=== PATIENT | male | born 1990 | race Caucasian/White ===

== ENCOUNTER 2021-03-31 04:10 | Emergency (ER) | payer BC ==
[2021-03-31] MEDS ORDERED: Proparacaine 0.5% Ophth Soln 15 ML Bottle EYELF PRN (04:33)
[2021-03-31] MEDS ORDERED: Fluorescein 1 MG Ophth Strip EYEBOTH ONE (04:34)
[2021-03-31] MEDS ORDERED: Polymyxin B/Trimethoprim 10 ML Bottle EYELF ONE (04:41)
== END 2021-03-31 05:13 | disposition home or self-care (01) ==
LOC: VM.ED 04:10
DX: T15.91XA Foreign body on external eye, part unspecified, right eye, initial encounter (principal)
CPT/HCPCS: 65205; 99283; A9270-GY